=== PATIENT | female | born 1980 | race Caucasian/White ===

== ENCOUNTER 2016-10-23 22:31 | Emergency (ER) | payer OTHER ==
[~2016-10-23] VITALS: Ht 162.6 cm; Wt 88.5 kg
[2016-10-23 23:16] LABS: APPEARANCE,URINE SLIGHTLY CLOUDY; KETONES,URINE NEGATIVE (NEGATIVE); LEUKOCYTE ESTERASE ,URINE NEGATIVE (NEGATIVE); NITRITE,URINE NEGATIVE (NEGATIVE); PH,URINE 6 (4.5-8.0); PROTEIN,URINE NEGATIVE (NEGATIVE); UROBILINOGEN,URINE NORMAL MG/DL (0.0-1.0)
[2016-10-23 23:19] LABS: BACTERIA,URINE FEW /HPF; RBC,URINE TNTC /HPF (0 - 2); SQUAMOUS EPITHELIAL CELL,UR MODERATE /LPF (NONE/OCC); WBC,URINE 0-2 /HPF (0 - 2)
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
[2016-10-24] MEDS ORDERED: DOXYCYCLINE MO100 MG ORAL
[2016-10-24 00:35] VITALS: BP 133/87
[2016-10-24 00:43] VITALS: BP 133/87
== END 2016-10-24 00:43 | disposition home or self-care (01) ==
LOC: EMR 23:06
DX: N93.9 Abnormal uterine and vaginal bleeding, unspecified (principal); L03.90 Cellulitis, unspecified; Z88.8 Allergy status to other drugs, medicaments and biological substances
CPT/HCPCS: 80300; 81003; 81025; 99283

== ENCOUNTER 2017-05-26 16:30 | Emergency (ER) | payer OTHER ==
[~2017-05-26] VITALS: Ht 167.6 cm; Wt 65.8 kg
[~2017-05-26 16:30] MED LIST: DOXYCYCLINE MO100 MG ORAL
[2017-05-26 17:17] VITALS: BP 132/82
--- NOTE | 2017-05-26 17:46 | Emergency Room Report ---
History of Present Illness General Chief Complaint: Skin Rash/Abscess Source: Patient Present Illness HPI 36-year-old female presents to the emergency department complaining of tenderness that is 10 out of 10 in severity, swelling to the left jawline x3 days. Patient reports she has a history of moderate acne vault parous and she believes she has a mild abscess forming. Patient denies fevers, chills, itching , swelling of the lips or time, difficulty swallowing or recent illness. Patient states that combination topical Clindamycin and her friend provide us results in the past. Patient states she has been squeezing at the site of days in hopes to drain the lesion however she unsuccessful.Denies CP, Palpitations, LOC, AMS, dizziness, Changes in Vision, Sensation, paresthesias, or a sudden severe headache. Allergies: Coded Allergies: CEFACLOR (Verified Allergy, Intermediate, 10/23/16) Patient History Past Medical History: see triage record Past Surgical History: none Pertinent Family History: none Last Menstrual Period: 05/26/17 Now: No Immunizations: UTD Reviewed Nursing Documentation: PMH: Agreed, PSxH: Agreed Nursing Documentation-PMH Past Medical History: No Stated History Review of Systems All Other Systems: negative except mentioned in HPI Physical Exam Vital Signs Date Time Temp Pulse Resp B/P (MAP) Pulse Ox O2 Delivery O2 Flow Rate FiO2 05/26/17 16:41 97.9 82 18 127/89 99 Room Air Sp02 EP Interpretation: reviewed, normal General Appearance: no apparent distress, alert, GCS 15, non-toxic Head: normocephalic, atraumatic Eyes: bilateral eye normal inspection, bilateral eye PERRL ENT: hearing grossly normal, normal voice Neck: full range of motion, supple/symm/no masses Respiratory: lungs clear, normal breath sounds, speaking full sentences Cardiovascular #1: regular rate, rhythm Musculoskeletal: back normal, gait/station normal, normal range of motion, non- tender Neurologic: alert, oriented x3, responsive, motor strength/tone normal, sensory intact, speech normal Psychiatric: judgement/insight normal, memory normal, mood/affect normal Skin: normal color, no rash, warm/dry, well hydrated, other - swelling and induration to 1cm area of the left jawline, no fluctuance, mild erythema, acne scars noted. Lymphatic: no adenopathy Medical Decision Making PA Attestation Dr. mendes is my supervising Physician whom patient management has been discussed with. Diagnostic Impression: Primary Impression: Abscess Additional Impression: Rash and other nonspecific skin eruption ER Course 36-year-old female presents to the emergency department complaining of tenderness that is 10 out of 10 in severity, swelling to the left jawline x3 days. Patient reports she has a history of moderate acne vault parous and she believes she has a mild abscess forming. Patient denies fevers, chills, itching , swelling of the lips or time, difficulty swallowing or recent illness. Patient states that combination topical Clindamycin and her friend provide us results in the past. Patient states she has been squeezing at the site of days in hopes to drain the lesion however she unsuccessful.Denies CP, Palpitations, LOC, AMS, dizziness, Changes in Vision, Sensation, paresthesias, or a sudden severe headache. Ddx considered but are not limited to cellulitis, abscess, cystic acne, necrotizing fasciitis, insect bite. Vital signs: are WNL, pt. is afebrile H&PE are most consistent with cystic acne. --no fluctuance is palpated. ORDERS: none required at this time, the diagnosis is clinical ED INTERVENTIONS: - D/W pt. dermatological follow up. DISCHARGE: At this time pt. is stable for d/c to home. Will provide printed patient care instructions, and any necessary prescriptions. Care plan and follow up instructions have been discussed with the patient prior to discharge. Last Vital Signs Date Time Temp Pulse Resp B/P (MAP) Pulse Ox O2 Delivery O2 Flow Rate FiO2 05/26/17 17:17 97.9 72 20 132/82 99 Room Air Disposition: HOME, SELF-CARE Condition: Stable Scripts Ibuprofen* (MOTRIN*) 600 Mg Tablet 600 MG ORAL THREE TIMES A DAY, #30 TAB 0 Refills Prov: Lucy Madrigal P.A. 05/26/17 Clindamycin Hcl (CLINDAMYCIN HCL) 300 Mg Capsule 300 MG ORAL FOUR TIMES A DAY for 7 Days, #28 CAP Prov: Lucy Madrigal P.A. 05/26/17 Adapalene (DIFFERIN) 45 Gm Cream..g. 1 APPLIC TP DAILY, #45 GM Prov: Lucy Madrigal P.A. 05/26/17 Clindamycin Phosphate (CLINDACIN P) 1 Each Med..swab 1 EACH TP BID, #60 PAD Prov: Lucy Madrigal 05/26/17 Referrals: [facility],REFERRING (PCP) Patient Instructions: Abscess Additional Instructions: Take medications as directed. Follow up with a Primary Care Provider for DERMATOLOGY referral in 3-5 days --Please review list of primary care clinics, if you do not already have a primary care provider Return sooner to ED if new symptoms occur, or current symptoms become worse. - Please note that this Emergency Department Report was dictated using [employer] picker technology software, occasionally this can lead to erroneous entry secondary to interpretation by the dictation equipment. Lucy Madrigal May 26, 2017 17:46
[2017-05-26] MEDS ORDERED: DIFFERIN45 G1 TP (17:51)
[2017-05-26] MEDS ORDERED: CLINDACIN P1 EACH TP (17:51)
[2017-05-26] MEDS ORDERED: CLINDAMYCIN HC300 MG ORAL (17:51)
[2017-05-26] MEDS ORDERED: IBUPROFEN600 MG ORAL (17:52)
[2017-05-26 18:18] VITALS: BP 138/84
== END 2017-05-26 18:20 | disposition home or self-care (01) ==
LOC: EMR 17:32
DX: M27.2 Inflammatory conditions of jaws (principal); R21 Rash and other nonspecific skin eruption
CPT/HCPCS: 99284

== ENCOUNTER 2017-08-08 04:33 | Emergency (ER) | payer MEDICAID, OTHER ==
[~2017-08-08] VITALS: Ht 167.6 cm; Wt 79.4 kg
[~2017-08-08 04:33] MED LIST changes: +CLINDACIN P1 EACH TP; +CLINDAMYCIN HC300 MG ORAL; +DIFFERIN45 G1 TP; +IBUPROFEN600 MG ORAL
[2017-08-08 05:06] VITALS: BP 124/77
[2017-08-08] MEDS ORDERED: METROGEL-VAGINA70 G1 VAGIN (05:25)
[2017-08-08] MEDS ORDERED: FLUCONAZOLE150 MG ORAL (05:25)
[2017-08-08] MEDS ORDERED: MONISTAT 745 GM VG (05:25)
[2017-08-08] MEDS ORDERED: Ketorolac 30mg Inj ONE (05:53)
[2017-08-08 06:26] VITALS: BP 124/77
[2017-08-08] MEDS ORDERED: Norco 5mg/325mg tab ORAL ONE (07:45)
[2017-08-08] MEDS ORDERED: NITROFURANTOIN100 M2 ORAL (07:45)
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
== END 2017-08-08 05:36 | disposition home or self-care (01) ==
LOC: EMR 04:59
DX: R21 Rash and other nonspecific skin eruption (principal)
CPT/HCPCS: 99284; J1885